=== PATIENT | male | born 1970 | race American Indian/Alaskan Native ===

== ENCOUNTER 2019-07-25 05:28 | Emergency (ER) | payer SELFPAY ==
--- NOTE | 2019-07-25 09:24 | Emergency Department Report ---
Chief Complaint: Extremity Injury, Lower Stated Complaint: BILATERAL FOOT PAIN Time Seen by Provider: 07/25/19 08:46 - HPI History of Present Illness: Is a 49-year-old male presents the ED complaining of bilateral foot pain for the past 2 weeks. Patient states he does a lot of walking in them. Patient states pain is localized to the bottom of the feet. Patient denies any injury trauma or falls. - ROS Review of Systems: As noted in HPI - Exam Physical Exam: Extremities: Ambulatory with no problems. No ulcerations or lacerations to the feet or toes. No swelling noted no redness. Multiple calluses noted to bilateral foot. Nontender to palpation. MSE screening note: Focused history and physical exam performed. Due to findings the following was ordered: ED Medical Decision Making - Medical Decision Making 49-year-old male who presented with bilateral foot pain secondary to callus Discussed with patient need to follow-up with inspector scales. Discussed with patient and Motrin as needed for pain. Vital signs are normal patient is in no acute distress. Patient is ambulatory without any problems. ED Disposition for MSE Clinical Impression: Callus of foot, Bilateral foot pain Disposition: MED SCREENING EXAM-LEFT Is pt being admited?: No Does the pt Need Aspirin: No Condition: Stable Instructions: Arthralgia (ED) Additional Instructions: Make sure to follow up with the primary care physician as discussed. If you have any worsening symptoms or develop new symptoms please return to ED immediately. Prescriptions: Ibuprofen [Motrin 800 MG tab] 800 mg PO TID #30 tablet Referrals: PRIMARY CARE, [Primary Care Provider] - 3-5 Days ARTHUR FELICIANO DPM [Staff Physician] - 3-5 Days RAJAN HODGE DPM [Staff Physician] - 3-5 Days Forms: Work/School Release Form(ED) Time of Disposition: 09:23
== END 2019-07-25 09:40 | disposition left against medical advice (07) ==
LOC: ED 05:28
DX: L84 Corns and callosities (principal); M79.671 Pain in right foot; M79.672 Pain in left foot
CPT/HCPCS: 99282

== ENCOUNTER 2019-08-20 04:16 | Emergency (ER) | payer SELFPAY ==
[2019-08-20 05:14] VITALS: BP 142/100
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
--- NOTE | 2019-08-20 09:52 | Cat Scan Report ---
CT ABDOMEN AND PELVIS WITHOUT CONTRAST HISTORY: Abdominal pain for 3 days. COMPARISON: None TECHNIQUE: Routine abdominal and pelvic CT exam performed without contrast. Lack of intravenous cont rast limits evaluation of the vascular and solid organs.. All CT scans at this location are performed using CT dose reduction for ALARA by means of automated exposure control. FINDINGS: CT ABDOMEN: Lung Bases: No significant abnormality. Liver: Normal. Biliary: The gallbladder is contracted with no stones. Normal bile ducts. Stomach: Although the stomach is collapsed, the gastric wall of the body and fundus is relatively thi ck (2 cm). No gastric ulcer or mass identified. Spleen: No significant abnormality. Unenlarged. Pancreas: No significant abnormality. Adrenals: No significant abnormality. Kidneys: No urinary calculus identified. Mild dilatation of the left proximal ureter but no obstructi ng calculus. The renal collecting systems are nondilated. Lymphatics: No lymphadenopathy. Vasculature: No significant abnormality. Bowel/Peritoneum: No significant abnormality. No free air. No free fluid. A relatively large volume o f stool in the ascending, transverse and descending colon Appendix not visualized. No pericecal infla mmation. CT PELVIC: : No significant abnormality. Lymphatics: No lymphadenopathy. Osseous Structures: No aggressive appearing osseous lesions. Additional Findings: None IMPRESSION: 1. Mild dilatation of the proximal left ureter which suggests the possibility of a recent stone passa ge. However, no urinary calculi are identified. 2. Otherwise negative abdomen and pelvis. Signer Name: Naveen Pham MD Signed: 08/20/2019 9:48 AM Workstation Name: [id number]
[2019-08-20 10:47] LABS: Basophils # (Auto) 0.1 K/mm3 (0.0-0.1); Basophils % (Auto) 1.1 % (0.0-1.8); Eosinophils # (Auto) 0.1 K/mm3 (0.0-0.4); Eosinophils % (Auto) 1.8 % (0.0-4.3); Hematocrit 41.4 % (35.5-45.6); Hemoglobin 13.9 gm/dl (11.8-15.2); Lymphocytes # (Auto) 2.8 K/mm3 (1.2-5.4); Lymphocytes % (Auto) 40.6 % (13.4-35.0); Mean Corpuscular HGB Conc 34 % (32-34); Mean Corpuscular Volume 92 fl (84-94); Monocytes # (Auto) 0.4 K/mm3 (0.0-0.8); Monocytes % (Auto) 5.4 % (0.0-7.3); Platelet Count 242 K/mm3 (140-440); Red Blood Count 4.51 M/mm3 (3.65-5.03); Red Cell Distribution Width 14.5 % (13.2-15.2)
[2019-08-20 11:06] LABS: Alanine Aminotransferase 12 units/L (7-56); Albumin 3.7 g/dL (3.9-5); BUN/Creatinine Ratio 11; Blood Urea Nitrogen 9 mg/dL (9-20); Calcium 8.7 mg/dL (8.4-10.2); Hemolysis Index 12
== END 2019-08-20 12:06 | disposition home or self-care (01) ==
LOC: ED 04:16
DX: R10.9 Unspecified abdominal pain (principal); F12.90 Cannabis use, unspecified, uncomplicated; Z79.899 Other long term (current) drug therapy; Z98.890 Other specified postprocedural states
CPT/HCPCS: 36415; 74176; 80053; 82150; 83690; 85025

== ENCOUNTER 2021-06-11 13:49 | Emergency (ER) | payer SELFPAY ==
[2021-06-11 15:36] VITALS: BP 104/70
[2021-06-11] MEDS ORDERED: oxyCODONE /ACETAMINOPHEN 5-325MG TAB PO ONE (15:40)
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
--- NOTE | 2021-06-11 16:22 | XRay Report ---
LEFT KNEE 4 VIEW(S) INDICATION / CLINICAL INFORMATION: L knee pain COMPARISON: None available. FINDINGS: BONES / JOINT(S): No acute fracture or subluxation. Mild DJD. SOFT TISSUES: No significant abnormality. ADDITIONAL FINDINGS: None. Signer Name: Dylan Black MD Signed: 06/11/2021 4:18 PM Workstation Name: [id number]
== END 2021-06-11 18:34 | disposition home or self-care (01) ==
LOC: ED 13:49
DX: M23.92 Unspecified internal derangement of left knee (principal); F12.10 Cannabis abuse, uncomplicated
CPT/HCPCS: 99283